=== PATIENT | female | born 1990 | race Caucasian/White ===

== ENCOUNTER 2017-07-06 13:08 | Inpatient (IN) | payer OTHER ==
[~2017-07-06] VITALS: Ht 165.1 cm; Wt 127.3 kg
[2017-07-12] MEDS ORDERED: OXYTOCIN 30U/ 0.9% NaCL 500ML 500 ML IV ONE (20:59)
[2017-07-12] MEDS ORDERED: D5%-LACTATED RINGERS 1,000 ML IV SCH (20:59)
[2017-07-12] MEDS ORDERED: FENTANYL PF 100 MCG/2ML IV PRN (21:00)
[2017-07-12] MEDS ORDERED: ONDANSETRON 2MG/ML, 2ML IVPush PRN (21:00)
[2017-07-12] MEDS ORDERED: MISOPROSTOL 25 MCG TABLET ONE (21:18)
[2017-07-12 21:22] LABS: HEMATOCRIT 39.3 % (34.6-47.8); HEMOGLOBIN 12.8 g/dL (11.7-16.4); WHITE BLOOD COUNT 11.7 x10^3/uL (3.4-10)
[2017-07-12] MEDS ORDERED: MISOPROSTOL 25 MCG TABLET VG PRN (21:30)
[2017-07-12] MEDS ORDERED: NEWBORN KIT ONE (21:42)
[2017-07-13] MEDS ORDERED: LIDOCAINE 1%, 20ML ONE (02:39)
[2017-07-13] MEDS ORDERED: MISOPROSTOL 200 MCG TABLET ONE (02:39)
[2017-07-13] MEDS ORDERED: OXYTOCIN 30U/ 0.9% NaCL 500ML 500 ML ONE ×2 (02:39→23:02)
[2017-07-13] MEDS ORDERED: OXYTOCIN 30U/ 0.9% NaCL 500ML 500 ML IV PRN (02:43)
[2017-07-13] MEDS: LACTATED RINGERS 1,000 ML IV SCH ×3 (02:53→21:25)
[2017-07-13] MEDS ORDERED: FENTANYL PF 100 MCG/2ML ONE ×5 (10:22→15:58)
[2017-07-13] MEDS: FENTANYL PF 100 MCG/2ML IVPush PRN ×3 (10:28→15:44)
[2017-07-13] MEDS ORDERED: FENTANYL/BUPIV./NS/PF 250 ML EPIDCONT ONE ×2 (11:35→12:08)
[2017-07-13] MEDS ORDERED: BUPIVACAINE 0.25% ONE ×2 (12:08→12:10)
[2017-07-13] MEDS ORDERED: LIDOCAINE/PF 1.5%-EPI 1:200K, 30ML ONE (12:10)
[2017-07-13] MEDS ORDERED: LACTATED RINGERS 1,000 ML IV SCH (14:05)
[2017-07-13] MEDS ORDERED: FENTANYL/BUPIV./NS/PF 250 ML EPIDCONT SCH (14:05)
[2017-07-13] MEDS ORDERED: LACTATED RINGERS 1,000 ML IVBOLUS PRN (14:30)
[2017-07-13] MEDS ORDERED: EPHEDRINE 50 MG/ML, 1ML IVPush PRN (14:30)
[2017-07-13] MEDS ORDERED: ACETAMINOPHEN 325 MG TABLET ONE (19:59)
[2017-07-13] MEDS ORDERED: ACETAMINOPHEN 325 MG TABLET PO PRN ×2 (20:30→23:00)
[2017-07-13] MEDS ORDERED: CEFAZOLIN PMX 1GM/50ML 50 ML ONE (21:23)
[2017-07-13] MEDS: CEFAZOLIN PMX 1GM/50ML 50 ML IV SCH (21:26)
[2017-07-13] MEDS ORDERED: CARBOPROST TROMETHAMINE 250 MCG/ML, 1ML IM ONE (22:32)
[2017-07-13] MEDS ORDERED: BISACODYL 10 MG SUPP PR PRN (23:00)
[2017-07-13] MEDS ORDERED: ONDANSETRON 2MG/ML, 2ML IV PRN (23:00)
[2017-07-13] MEDS ORDERED: OXYcodone IR 5MG TABLET PO PRN (23:00)
[2017-07-13] MEDS ORDERED: METHYLERGONOVINE 0.2 MG/ML IM PRN (23:00)
[2017-07-13] MEDS ORDERED: IBUPROFEN 600 MG TABLET ONE (23:02)
[2017-07-13] MEDS: IBUPROFEN 600 MG TABLET PO PRN (23:06)
[2017-07-13] MEDS: OXYTOCIN 30U/ 0.9% NaCL 500ML 500 ML IV SCH (23:14)
[2017-07-14] VITALS (7 sets, daily range): BP systolic 109–127; BP diastolic 65–80
[2017-07-14] MEDS ORDERED: MISOPROSTOL 200 MCG TABLET PR PRN (02:00)
[2017-07-14] MEDS: OXYcodone IR 5MG TABLET PO PRN ×4 (03:25→21:19)
[2017-07-14] MEDS ORDERED: CEFAZOLIN PMX 1GM/50ML 50 ML IV SCH (05:00)
[2017-07-14] MEDS: CEFAZOLIN PMX 1GM/50ML 50 ML IV SCH ×3 (05:11→22:10)
[2017-07-14 06:49] LABS: HEMATOCRIT 33.8 % (34.6-47.8); HEMOGLOBIN 11.2 g/dL (11.7-16.4); WHITE BLOOD COUNT 21.8 x10^3/uL (3.4-10)
[2017-07-14] MEDS ORDERED: PRENATAL VIT/IRON/FA 1 EACH TABLET ONE (07:50)
[2017-07-14] MEDS: DOCUSATE 100 MG CAPSULE PO PRN ×2 (07:52→21:18)
[2017-07-14] MEDS: PRENATAL VIT/IRON/FA 1 EACH TABLET PO SCH (07:52)
[2017-07-14] MEDS: IBUPROFEN 600 MG TABLET PO PRN ×3 (07:52→23:47)
[2017-07-14] MEDS: OXYTOCIN 30U/ 0.9% NaCL 500ML 500 ML IV SCH (08:54)
[2017-07-14] MEDS: ENOXAPARIN 40 MG/0.4 ML SQ SCH (09:10)
[2017-07-15] MEDS: OXYTOCIN 30U/ 0.9% NaCL 500ML 500 ML IV SCH (04:54)
[2017-07-15] MEDS: CEFAZOLIN PMX 1GM/50ML 50 ML IV SCH (05:30)
[2017-07-15] MEDS: OXYcodone IR 5MG TABLET PO PRN (05:52)
[2017-07-15 07:00] VITALS: BP 105/58
[2017-07-15] MEDS: DOCUSATE 100 MG CAPSULE PO PRN (08:31)
[2017-07-15] MEDS: PRENATAL VIT/IRON/FA 1 EACH TABLET PO SCH (08:31)
[2017-07-15] MEDS: ENOXAPARIN 40 MG/0.4 ML SQ SCH (09:33)
[2017-07-15] MEDS ORDERED: OXYC-302 PO (11:08)
[2017-07-15] MEDS ORDERED: IBUP-1222 PO (11:09)
== END 2017-07-15 11:36 | disposition home or self-care (01) | DRG 775 ==
LOC: LDIP 07-12 20:53 → 2NW 07-14 00:45
PROVIDERS: ADMIT Obstetrics & Gynecology; ATTEND Obstetrics & Gynecology
PROC: 0KQM0ZZ Repair Perineum Muscle, Open Approach (ICD-10-PCS; principal; 2017-07-13)
PROC: 10E0XZZ Delivery of Products of Conception, External Approach (ICD-10-PCS; 2017-07-13)
PROC: 3E0S3CZ (ICD-10-PCS; 2017-07-13)
PROC: 00HU33Z Insertion of Infusion Device into Spinal Canal, Percutaneous Approach (ICD-10-PCS; 2017-07-13)
DX: O48.0 Post-term pregnancy (principal); O41.1230 Chorioamnionitis, third trimester, not applicable or unspecified; Z37.0 Single live birth; O99.214 Obesity complicating childbirth; E66.01 Morbid (severe) obesity due to excess calories; Z3A.41 41 weeks gestation of pregnancy; O70.1 Second degree perineal laceration during delivery
CPT/HCPCS: 36415; 82803; 85025; 86850; 86900; J0690; J1650; J3010; J3490; J2590; J7120

== ENCOUNTER 2019-03-12 20:03 | Emergency (ER) | payer OTHER ==
[~2019-03-12] VITALS: Ht 180.3 cm; Wt 103.0 kg
[~2019-03-12 20:03] MED LIST: IBUP-1222 PO; OXYC-302 PO
[2019-03-12 21:10] LABS: BASOPHILS # (AUTO) 0.04 x10^3/uL (0-0.1); BASOPHILS % (AUTO) 0 % (0-1); EOSINOPHILS # (AUTO) 0.23 x10^3/uL (0-0.4); EOSINOPHILS % (AUTO) 2 % (1-7); LYMPHOCYTES # (AUTO) 2.66 x10^3/uL (1-3.4); LYMPHOCYTES % (AUTO) 21 % (22-44); MD NO; MEAN CORPUSCULAR HEMOGLOBIN 26.7 pg (27.0-34.8); MEAN CORPUSCULAR HGB CONC 32.6 g/dL (32.4-35.8); MEAN CORPUSCULAR VOLUME 81.8 fL (80-100); MEAN PLATELET VOLUME 9.7 fL (7.4-10.4); MONOCYTES % (AUTO) 3 % (2-9); NEUTROPHILS # (AUTO) 9.35 x10^3/uL (1.8-6.8); NEUTROPHILS % (AUTO) 74 % (42-75); PLATELET COUNT 281 x10^3/uL (130-400); RED BLOOD COUNT 5.06 x10^6/uL (3.82-5.3); RED CELL DISTRIBUTION WIDTH 13.7 % (9.6-15.2)
[2019-03-12 21:20] LABS: ALANINE AMINOTRANSFERASE 26 U/L (12-78); ALBUMIN 3.7 g/dL (3.4-5.0); ANION GAP 7 mmol/L (5-15); CALCIUM 8.6 mg/dL (8.5-10.1); CHLORIDE 108 mmol/L (98-107); CREATININE 0.76 mg/dL (0.55-1.02)
[2019-03-12 21:25] LABS: ALKALINE PHOSPHATASE 83 U/L (45-117); TOTAL PROTEIN 7.3 g/dL (6.4-8.2)
[2019-03-12 21:28] LABS: BILIRUBIN,TOTAL < 0.1 mg/dL (0.2-1.0)
--- NOTE | 2019-03-12 21:53 | NUR ---
pt called to room from lobby
--- NOTE | 2019-03-12 22:04 | NUR ---
PT RESTING, SPOUSE AT BEDSIDE. PT STATES "PAIN HAS SUBSIDED SINCE SHE HAS BEEN WAITING." DENIES NAUSEA OR VOMITING.
--- NOTE | 2019-03-12 23:09 | NUR ---
PHYSICIAN AT BEDSIDE. UPDATED ON TEST RESULTS AND PLAN OF CARE. PT READY FOR DISCHARGE HOME.
[2019-03-12 23:10] VITALS: BP 128/81
== END 2019-03-12 23:12 | disposition home or self-care (01) ==
LOC: ED 22:45
DX: K80.20 Calculus of gallbladder without cholecystitis without obstruction (principal)
CPT/HCPCS: 36415; 76700; 80053; 83690; 84703; 85025; 99284